=== PATIENT | male | born 1995 | race Caucasian/White ===

== ENCOUNTER 2018-03-11 20:04 | Emergency (ER) | payer OTHER ==
[2018-03-11 20:21] VITALS: RESP 16; TEMP 98.7
[2018-03-11] MEDS ORDERED: PROPARACAINE 0.5% OPHTH DROPS 15 ML BTL BOTH EYES STA (20:36)
--- NOTE | 2018-03-11 22:03 | ED ---
General Adult HPI - General Chief complaint: Eye Problems Stated complaint: Metal in eye Source: patient, RN notes reviewed, old records reviewed Mode of arrival: ambulatory Limitations: no limitations - History of Present Illness Initial comments: 22-year-old male patient with no pertinent past medical history for ED with pain right eye. Patient states that he was grinding metal approximately 3 days ago when he felt a piece. His right eye. Patient states he has had moderate right corneal irritation and sent incident. Patient states that the piece of metal is visible at approximately 9:00 adjacent to his iris. Patient denies any other complaints. Patient states that his vision is at baseline. Pt states he had tetanus update within last 18 months. Systemic: Pt denies fatigue, myalgia, fever/chills, rash. Pt denies weakness, night sweats, weight loss. Neuro: Pt denies headache, visual disturbances, syncope or pre-syncope. HEENT: Pt denies rhinorrhea, pharyngitis or notable lymphadenopathy. Cardiopulmonary: Pt denies chest pain, SOB, heart palpitations, dyspnea on exertion. Abdominal/GI: Pt denies abdominal pain, n/v/d. : Pt denies dysuria, burning w/ urination, frequency/urgency. Denies new onset urinary or bowel incontinence. MSK: Pt denies myalgia, loss of strength or function in extremities. - Related Data Previous Rx's Medication Instructions Recorded Ciprofloxacin Ophth Soln [Cipro 2 drops RIGHT EYE Q6HR 5 Days #1 03/11/18 0.3% Ophth Soln] bottle Allergies Allergy/AdvReac Type Severity Reaction Status Date / Time No Known Allergies Allergy Verified 03/11/18 20:21 Review of Systems ROS Statement: Those systems with pertinent positive or pertinent negative responses have been documented in the HPI. ROS Other: All systems not noted in ROS Statement are negative. Past Medical History Past Medical History: No Reported History Additional Past Medical History / Comment(s): Migraines History of Any Multi-Drug Resistant Organisms: None Reported Past Surgical History: No Surgical Hx Reported Past Psychological History: Depression Smoking Status: Current every day smoker Past Alcohol Use History: Rare Past Drug Use History: Marijuana General Exam - General Exam Comments Initial Comments: Constitutional: NAD, AOX3, Pt has pleasant affect. HEENT: NC/AT, trachea midline, neck supple, no lymphadenopathy. Posterior pharynx non erythematous, without exudates. External ears appear normal, without discharge. Mucous membranes moist. Eyes PERRLA, EOM intact. Mild injection noted right eye. Foreign body noted at 9:00 adjacent to iris. Flourescence stain did not reveal any other areas of uptake. Foreign body was removed with 18g needle. Minor rust ring noted, was removed with lady brush. There is no scleral icterus. No pallor noted. Cardiopulmonary: RRR, no murmurs, rubs or gallops, no JVD noted. Lungs CTAB in anterior and posterior m[place]ill[place]. No peripheral edema. Abdominal exam: Abdomen soft and non-distended. Abdomen non-tender to palpation in all 4 quadrants. Bowel sounds active in LLQ. No hepatosplenomegaly. Neuro: CN II-XII grossly intact. Limitations: no limitations Course Vital Signs 03/11/18 03/11/18 20:18 22:20 Temperature 98.7 F Pulse Rate 85 73 Respiratory 16 16 Rate Blood Pressure 167/74 144/81 O2 Sat by Pulse 100 99 Oximetry Medical Decision Making - Medical Decision Making 22-year-old male patient presents to ED after sustaining a foreign body in his right eye for approximately 2 days. Patient states that his present mental as he was using a metal hardener. Patient did not require tetanus update. Foreign bodies noted 18-gauge needle. Minor rust ring was noted, removed with lady brush. Patient prescribed ciprofloxacin eyedrops for 5 days. Patient to follow up with optho in 1-2 days. Patient to follow-up with PCP in 1-2 days. Patient to return to ED if any new signs or symptoms develop including loss of vision, increased irritation, discharge from eye, redness, or any other new symptoms. Case discussed with Dr. Osorio. Disposition Clinical Impression: Foreign body in eye Disposition: HOME SELF-CARE Condition: Good Instructions: Eye Foreign Body (ED) Additional Instructions: Patient to adhere to previously discussed treatment plan and will take medication(s) as directed. Patient to follow up with PCP in 1-2 days. Patient to return to ED if symptoms do not improve. Prescriptions: Ciprofloxacin Ophth Soln [Cipro 0.3% Ophth Soln] 2 drops RIGHT EYE Q6HR 5 Days # 1 bottle Is patient prescribed a controlled substance at d/c from ED?: No Referrals: Nazanin Villanueva III, MD [Primary Care Provider] - 1-2 days Sunday Walls MD [STAFF PHYSICIAN] - 1-2 days Time of Disposition: 22:03
[2018-03-11 22:27] VITALS: BP 144/81; PULSE 73
== END 2018-03-11 22:20 | disposition home or self-care (01) ==
LOC: EC 20:04
DX: T15.91XA Foreign body on external eye, part unspecified, right eye, initial encounter (principal); F17.200 Nicotine dependence, unspecified, uncomplicated
CPT/HCPCS: 99283

== ENCOUNTER 2019-01-03 08:52 | Emergency (ER) | payer OTHER ==
[2019-01-03 09:02] VITALS: BP 164/65; PULSE 69; RESP 18; TEMP 98.4
[2019-01-03] MEDS ORDERED: LIDOCAINE 1% INJ 10MG/ML (20 ML MDV) SQ ONE (09:22)
--- NOTE | 2019-01-03 09:40 | XR ---
EXAMINATION TYPE: XR hand complete LT DATE OF EXAM: 01/03/2019 COMPARISON: NONE HISTORY: 23-year-old male trauma and pain TECHNIQUE: 3 views FINDINGS: No acute fracture, subluxation, or dislocation. No retained radiopaque foreign body seen. IMPRESSION: No acute osseous abnormality seen.
[2019-01-03] MEDS ORDERED: CEPHALEXIN 500 MG CAP PO STA (10:40)
--- NOTE | 2019-01-03 10:42 | ED ---
Upper Extremity HPI - General Chief Complaint: Extremity Injury, Upper Stated Complaint: LEFT HAND INJURY/LACERATION Time Seen by Provider: 01/03/19 09:00 Source: patient Mode of arrival: ambulatory Limitations: no limitations - History of Present Illness Initial Comments: The patient is a 23-year-old male presents emergency room with complaint of laceration to his left thumb. The patient states that he sustained last night. He was using a hammer to cut tile. States that his hand slipped and brushed up against the edge of the tile. He did sustain a 1.5 cm laceration to the lateral aspect of his left thumb. The patient is right-hand dominant. He states that he attempted to glue the laceration with superglue. He then wrapped it up in a gauze. States that today it was still oozing and his laceration does not appear to be sticking together with the glue. Because of this he did come to the emergency room. States that his tetanus was updated within the past year. He denies any redness or pustular drainage from the site. Injury was sustained at 5 PM. He denies any numbness or tingling in his thumb. No loss of movement. Denies any additional injury sustained. There are no other alleviating, precipitating or modifying factors - Related Data Home Medications Medication Instructions Recorded Confirmed Acetaminophen/Diphenhydramine 1 tab PO HS PRN 01/03/19 01/03/19 [Tylenol PM 500-25mg] Previous Rx's Medication Instructions Recorded Cephalexin [Keflex] 500 mg PO Q6HR 3 Days #12 cap 01/03/19 Allergies Allergy/AdvReac Type Severity Reaction Status Date / Time No Known Allergies Allergy Verified 01/03/19 09:10 Review of Systems ROS Statement: Those systems with pertinent positive or pertinent negative responses have been documented in the HPI. ROS Other: All systems not noted in ROS Statement are negative. Past Medical History Past Medical History: No Reported History Additional Past Medical History / Comment(s): Migraines, stomach ulcer History of Any Multi-Drug Resistant Organisms: None Reported Past Surgical History: No Surgical Hx Reported Past Psychological History: Depression Smoking Status: Current every day smoker Past Alcohol Use History: Rare Past Drug Use History: Marijuana General Exam Limitations: no limitations General appearance: alert, in no apparent distress Extremities exam: Present: normal inspection, full ROM, normal capillary refill, other (laceration lateral aspect of left thumb - 1.5 x 0.5 cm. No deep structure involvement. No retained foreign bodies or underlying bony fracture. 5/5 muscle strength in b/l upper extremities. Intact movement in the median, radial, ulnar and AIN motor groups. Intact 2 point discrimination and soft touch. 2+ radial and ulnar pulses) Skin exam: Present: warm, dry Course Vital Signs 01/03/19 08:59 Temperature 98.4 F Pulse Rate 69 Respiratory 18 Rate Blood Pressure 164/65 O2 Sat by Pulse 98 Oximetry Procedures - Laceration Laceration #1 Consent Obtained: verbal consent Indication: laceration Site: hand Size (cm): 1 ((1.5 cm)) Description: linear Depth: simple, single layer Anesthetic Used: lidocaine 1% Anesthesia Technique: local infiltration Pre-repair: wound explored, irrigated extensively, deep structures intact Type of Sutures: nylon Size of Sutures: 5-0, 6-0 Number of Sutures: 3 Technique: simple, interrupted Patient Tolerated Procedure: well, no complications Medical Decision Making - Medical Decision Making Upon arrival the patient is placed in room 8. I did discuss diagnosis, differential and treatment options. I did discuss delayed closure with the increased risk of infection as the laceration happened last night. The patient understood this and was agreeable to laceration repair. The wound was copiously cleansed with 500 mL of room temperature normal saline high pressure. The lesion was explored in a bloodless field and revealed no deep structure involvement. No vascular, tendon or muscle involvement. No retained foreign body. I did reapproximate the wound using 3, 5-0 nylon suture the patient tolerated the procedure well. He is instructed to keep the area clean and dry a nd have the sutures removed in 10 days. He is placed in a baseball splint. He was given return parameters. The patient was discharged home in stable condition Disposition Clinical Impression: Finger laceration Disposition: HOME SELF-CARE Condition: Stable Instructions (If sedation given, give patient instructions): Care For Your Stitches (ED) Prescriptions: Cephalexin [Keflex] 500 mg PO Q6HR 3 Days #12 cap Is patient prescribed a controlled substance at d/c from ED?: No Referrals: None,Stated [Primary Care Provider] - 1-2 days Time of Disposition: 10:42
== END 2019-01-03 11:02 | disposition home or self-care (01) ==
LOC: EC 08:52
DX: S61.012A Laceration without foreign body of left thumb without damage to nail, initial encounter (principal); F17.200 Nicotine dependence, unspecified, uncomplicated; W22.8XXA Striking against or struck by other objects, initial encounter; Y93.89 Activity, other specified
CPT/HCPCS: 73130; 12001; 99283; J2001

== ENCOUNTER 2019-06-15 10:02 | Emergency (ER) | payer OTHER ==
[2019-06-15 10:15] VITALS: TEMP 98.5
--- NOTE | 2019-06-15 10:26 | ED ---
General Adult HPI - General Chief complaint: Upper Respiratory Infection Stated complaint: Cough,Fever, body aches, SOB Time Seen by Provider: 06/15/19 10:14 Source: patient Mode of arrival: ambulatory Limitations: no limitations - History of Present Illness Initial comments: Patient is 24-year-old male presenting to emergency Department with a chief co mplaint of cough congestion and fever. States the symptoms began about one day ago that initially started with a productive cough with clear sputum production. Does report some wheezing particularly in night whenever he lays down. Also reports some shortness of breath whenever he is wheezing. Denies any wheezing or shortness of breath at this time. Denies any chest pain and back pain. Does report clear bilateral rhinorrhea but denies any sore throat or otalgia. Does report a fever at home. This reports taking ibuprofen with some improvement in symptoms. Does report sick patient contact. Denies flu vaccination. Patient is a daily smoker. - Related Data Home Medications Medication Instructions Recorded Confirmed Acetaminophen/Diphenhydramine 1 tab PO HS PRN 01/03/19 01/03/19 [Tylenol PM 500-25mg] Previous Rx's Medication Instructions Recorded Cephalexin [Keflex] 500 mg PO Q6HR 3 Days #12 cap 01/03/19 Albuterol Inhaler [Ventolin Hfa 1 - 2 puff INHALATION RT-Q6H PRN 06/15/19 Inhaler] #1 inhaler Oseltamivir [Tamiflu] 75 mg PO Q12HR #10 cap 06/15/19 methylPREDNISolone [Medrol Dose 4 mg PO DIRECTED #1 pack 06/15/19 Pack] Allergies Allergy/AdvReac Type Severity Reaction Status Date / Time No Known Allergies Allergy Verified 06/15/19 10:15 Review of Systems ROS Statement: Those systems with pertinent positive or pertinent negative responses have been documented in the HPI. ROS Other: All systems not noted in ROS Statement are negative. Past Medical History Past Medical History: No Reported History Additional Past Medical History / Comment(s): Migraines, stomach ulcer History of Any Multi-Drug Resistant Organisms: None Reported Past Surgical History: No Surgical Hx Reported Past Psychological History: Depression Smoking Status: Current every day smoker Past Alcohol Use History: Rare Past Drug Use History: Marijuana General Exam Limitations: no limitations General appearance: alert, in no apparent distress Head exam: Present: atraumatic, normocephalic, normal inspection Eye exam: Present: normal appearance Pupils: Present: normal accommodation ENT exam: Present: normal exam, normal oropharynx (Uvula midline. No tonsillar erythema, exudates or enlargement.), mucous membranes moist, TM's normal bilaterally, normal external ear exam Neck exam: Present: normal inspection, full ROM. Absent: lymphadenopathy Respiratory exam: Present: normal lung sounds bilaterally. Absent: wheezes, rhonchi, stridor, chest wall tenderness, accessory muscle use, decreased breath sounds Cardiovascular Exam: Present: regular rate, normal rhythm, normal heart sounds GI/Abdominal exam: Present: soft. Absent: distended, tenderness Extremities exam: Present: normal inspection, full ROM Back exam: Present: normal inspection, full ROM Neurological exam: Present: alert, oriented X3 Psychiatric exam: Present: normal affect, normal mood Skin exam: Present: warm, dry, intact, normal color Course Vital Signs 06/15/19 10:13 Temperature 98.5 F Pulse Rate 102 H Respiratory 18 Rate Blood Pressure 176/81 O2 Sat by Pulse 100 Oximetry Medical Decision Making - Medical Decision Making Patient is 24-year-old male presenting to emergency Department with chief complaint cough congestion and fever. Symptoms not going for about one day. Physical examination is unremarkable. Chest x-ray shows mild perirectal cuffing suggesting possible bronchiolitis, this does not clinically correlate considered patient is 24 years old. Patient is positive for influenza a. Patient will be started on Tamiflu. Patient also prescribed a Medrol Dosepak and an albuterol inhaler. I counseled the patient for smoking cessation for greater than 3 minutes Return parameters were thoroughly discussed with patient is an ascending agreeable. He was advised to follow with primary care. Case discussed physician. - Lab Data Lab Results 06/15/19 Range/Units 10:25 Influenza Type A RNA Detected H (Not Detectd) Influenza Type B (PCR) Not Detected (Not Detectd) Disposition Clinical Impression: Cough, Influenza Disposition: HOME SELF-CARE Condition: Stable Instructions (If sedation given, give patient instructions): Influenza (DC) Additional Instructions: Follow-up with primary care. Take prescribed medication as directed. Return to emergency department if symptoms worsen. Prescriptions: methylPREDNISolone [Medrol Dose Pack] 4 mg PO DIRECTED #1 pack Oseltamivir [Tamiflu] 75 mg PO Q12HR #10 cap Albuterol Inhaler [Ventolin Hfa Inhaler] 1 - 2 puff INHALATION RT-Q6H PRN #1 inhaler PRN Reason: Wheezing Is patient prescribed a controlled substance at d/c from ED?: No Referrals: None,Stated [Primary Care Provider] - 1-2 days Time of Disposition: 11:02
--- NOTE | 2019-06-15 10:32 | XR ---
EXAMINATION TYPE: XR chest 2V DATE OF EXAM: 06/15/2019 COMPARISON: Chest x-ray July 11, 2013 HISTORY: Fever. TECHNIQUE: Frontal and lateral views of the chest are obtained. FINDINGS: There is no focal air space opacity, pleural effusion, or pneumothorax seen. Central maxim hilar peribronchial cuffing is present seen best lateral view The cardiac silhouette size is within n ormal limits. The osseous structures are intact. IMPRESSION: No suspicious peripheral acute infiltrate. Central perihilar peribronchial cuffing consi stent with reactive airway disease possibly from a viral bronchiolitis, correlate clinically.
[2019-06-15 11:07] VITALS: BP 135/71; PULSE 98; RESP 16
== END 2019-06-15 11:05 | disposition home or self-care (01) ==
LOC: EC 10:02
DX: J11.1 Influenza due to unidentified influenza virus with other respiratory manifestations (principal); F17.200 Nicotine dependence, unspecified, uncomplicated; Z71.6 Tobacco abuse counseling
CPT/HCPCS: 71046; 87502; 99283; 99406

== ENCOUNTER 2020-09-26 13:59 | Emergency (ER) | payer OTHER ==
[2020-09-26 14:15] VITALS: RESP 20; TEMP 98
[2020-09-26] MEDS ORDERED: SODIUM CHLORIDE 0.9% 1,000 ML IV STA (14:57)
[2020-09-26] MEDS ORDERED: KETOROLAC 15 MG/ML 1 ML VIAL IVP STA (14:57)
--- NOTE | 2020-09-26 14:59 | ED ---
General Adult HPI - General Chief complaint: Abdominal Pain Stated complaint: Kidney stone Time Seen by Provider: 09/26/20 14:10 Source: patient, RN notes reviewed, old records reviewed Mode of arrival: ambulatory Limitations: no limitations - History of Present Illness Initial comments: This is a 25-year-old male who presents emergency department stating that on Wednesday started having right-sided flank pain and yesterday got so bad it doubled him over at work per patient states it was sudden onset when it started and has had times where his been very severe. Patient denies any nausea. Patient states some of the pain does radiate down towards his groin. Patient denies any back pain. Patient denies any fever chills or cough per patient denies any nausea vomiting or diarrhea. Patient states he has not noticed driving on the car that the bumps make it any worse. States he has had no history of abdominal problems or kidney stones in the past. Patient denies any dysuria hematuria urinary frequency. - Related Data Home Medications Medication Instructions Recorded Confirmed Omeprazole Magnesium [PriLOSEC OTC] 20 mg PO DAILY 09/26/20 09/26/20 Allergies Allergy/AdvReac Type Severity Reaction Status Date / Time No Known Allergies Allergy Verified 09/26/20 16:50 Review of Systems ROS Statement: Those systems with pertinent positive or pertinent negative responses have been documented in the HPI. ROS Other: All systems not noted in ROS Statement are negative. Past Medical History Past Medical History: No Reported History Additional Past Medical History / Comment(s): Migraines, stomach ulcer History of Any Multi-Drug Resistant Organisms: None Reported Past Surgical History: No Surgical Hx Reported Past Psychological History: Depression Smoking Status: Current every day smoker Past Alcohol Use History: Rare Past Drug Use History: Marijuana General Exam - General Exam Comments Initial Comments: GENERAL: Patient is well-developed and well-nourished. Patient is nontoxic and well- hydrated and is in mild distress. ENT: Neck is soft and supple. No significant lymphadenopathy is noted. Oropharynx is clear. Moist mucous membranes. Neck has full range of motion without eliciting any pain. EYES: The sclera were anicteric and conjunctiva were pink and moist. Extraocular movements were intact and pupils were equal round and reactive to light. Eyelids were unremarkable. PULMONARY: Unlabored respirations. Good breath sounds bilaterally. No audible rales rhonchi or wheezing was noted. CARDIOVASCULAR: There is a regular rate and rhythm without any murmurs gallops or rubs. ABDOMEN: Soft and nontender with normal bowel sounds. SKIN: Skin is clear with no lesions or rashes and otherwise unremarkable. NEUROLOGIC: Patient is alert and oriented x3. Cranial nerves II through XII are grossly intact. Motor and sensory are also intact. Normal speech, volume and content. Symmetrical smile. MUSCULOSKELETAL: Normal extremities with adequate strength and full range of motion. No lower extremity swelling or edema. No calf tenderness. LYMPHATICS: No significant lymphadenopathy is noted PSYCHIATRIC: Normal psychiatric evaluation. Limitations: no limitations Course Vital Signs 09/26/20 14:12 Temperature 98 F Pulse Rate 70 Respiratory 20 Rate Blood Pressure 167/66 O2 Sat by Pulse 99 Oximetry Medical Decision Making - Medical Decision Making CT of the abdomen pelvis show no acute normalities. I went back in the room and the patient was resting comfortably at this time. Patient was in agreement to be discharged home and follow-up as needed. - Lab Data Result diagrams: 09/26/20 15:00 09/26/20 02:55 Lab Results 09/26/20 09/26/20 09/26/20 Range/Units 02:55 15:00 15:00 WBC 9.8 (3.8-10.6) k/uL RBC 4.76 (4.30-5.90) m/uL Hgb 15.4 (13.0-17.5) gm/dL Hct 44.3 (39.0-53.0) % MCV 93.2 (80.0-100.0) fL MCH 32.3 (25.0-35.0) pg MCHC 34.7 (31.0-37.0) g/dL RDW 12.6 (11.5-15.5) % Plt Count 296 (150-450) k/uL MPV 6.6 Neutrophils % 72 % Lymphocytes % 18 % Monocytes % 5 % Eosinophils % 4 % Basophils % 0 % Neutrophils # 7.0 (1.3-7.7) k/uL Lymphocytes # 1.7 (1.0-4.8) k/uL Monocytes # 0.5 (0-1.0) k/uL Eosinophils # 0.4 (0-0.7) k/uL Basophils # 0.0 (0-0.2) k/uL Sodium 137 (137-145) mmol/L Potassium 3.8 (3.5-5.1) mmol/L Chloride 104 (98-107) mmol/L Carbon Dioxide 23 (22-30) mmol/L Anion Gap 10 mmol/L BUN 19 (9-20) mg/dL Creatinine 0.89 (0.66-1.25) mg/dL Est GFR (CKD-EPI)AfAm >90 (>60 ml/min/1.73 sqM) Est GFR (CKD-EPI)NonAf >90 (>60 ml/min/1.73 sqM) Glucose 90 (74-99) mg/dL Calcium 10.0 (8.4-10.2) mg/dL Total Bilirubin 1.0 (0.2-1.3) mg/dL AST 31 (17-59) U/L ALT 18 (4-49) U/L Alkaline Phosphatase 62 (38-126) U/L Total Protein 7.3 (6.3-8.2) g/dL Albumin 4.7 (3.5-5.0) g/dL Amylase 63 (30-110) U/L Lipase 83 (23-300) U/L Urine Color Yellow Urine Appearance Cloudy (Clear) Urine pH 7.0 (5.0-8.0) Ur Specific [place] 1.049 H (1.001-1.035) Urine Protein 3+ H (Negative) Urine Glucose (UA) Negative (Negative) Urine Ketones Trace H (Negative) Urine Blood Negative (Negative) Urine Nitrite Negative (Negative) Urine Bilirubin 1+ H (Negative) Urine Urobilinogen 3.0 (<2.0) mg/dL Ur Leukocyte Esterase Negative (Negative) Urine RBC 4 (0-5) /hpf Urine WBC 3 (0-5) /hpf Urine Bacteria Few H (None) /hpf Urine Mucus Many H (None) /hpf Disposition Clinical Impression: Flank pain Disposition: HOME SELF-CARE Instructions (If sedation given, give patient instructions): Flank Pain (ED) Is patient prescribed a controlled substance at d/c from ED?: No Referrals: Ross Zimmer MD [Primary Care Provider] - 1-2 days Time of Disposition: 17:34
[2020-09-26 15:14] LABS: Basophils % (A) 0 %; Eosinophils # (A) 0.4 k/uL (0-0.7); Eosinophils % (A) 4 %; HCT 44.3 % (39.0-53.0); HGB 15.4 gm/dL (13.0-17.5); Lymphocytes # (A) 1.7 k/uL (1.0-4.8); Lymphocytes % (A) 18 %; MCH 32.3 pg (25.0-35.0); MCHC 34.7 g/dL (31.0-37.0); MCV 93.2 fL (80.0-100.0); Mean Platelet Volume 6.6; Monocytes # (A) 0.5 k/uL (0-1.0); Monocytes % (A) 5 %; Neutrophils % (A) 72 %; Platelet Count 296 k/uL (150-450); RBC 4.76 m/uL (4.30-5.90); RDW 12.6 % (11.5-15.5); WBC 9.8 k/uL (3.8-10.6)
[2020-09-26 15:18] LABS: Appearance,Urine Cloudy (Clear); Bacteria,Urine Few /hpf; Bilirubin,Urine 1+ (Negative); Blood,Urine Negative (Negative); Color,Urine Yellow; Glucose,Urine (UA) Negative (Negative); Ketones,Urine Trace (Negative); Leukocyte Esterase,Urine Negative (Negative); Mucus,Urine Many /hpf; Nitrite,Urine Negative (Negative); Protein,Urine 3+ (Negative); RBC,Urine 4 /hpf (0-5); WBC,Urine 3 /hpf (0-5)
[2020-09-26 15:25] LABS: Specific Gravity,Urine 1.049 (1.001-1.035)
[2020-09-26 15:37] LABS: ALT 18 U/L (4-49); AST 31 U/L (17-59); African American GFR (CKD) >90 (>60 ml/min/1.73 sqM); Albumin 4.7 g/dL (3.5-5.0); Alkaline Phosphatase 62 U/L (38-126); Amylase 63 U/L (30-110); Anion Gap 10 mmol/L; Blood Urea Nitrogen 19 mg/dL (9-20); Carbon Dioxide 23 mmol/L (22-30); Chloride 104 mmol/L (98-107); Glucose 90 mg/dL (74-99); Lipase 83 U/L (23-300); Non-African American GFR(CKD) >90 (>60 ml/min/1.73 sqM); Potassium 3.8 mmol/L (3.5-5.1); Sodium 137 mmol/L (137-145); Total Protein 7.3 g/dL (6.3-8.2)
--- NOTE | 2020-09-26 15:37 | XR ---
EXAMINATION TYPE: XR KUB DATE OF EXAM: 09/26/2020 3:32 PM CLINICAL HISTORY: Right flank pain since yesterday. TECHNIQUE: Two Upright KUB images of the abdomen are obtained. COMPARISON: Abdominal x-ray July 11, 2013 FINDINGS: Gas seen in nondistended stomach. Scattered gas is seen in non-distended small bowel loops. Gas and fecal material is seen in non-distended colon and rectum. There is no visceromegaly, pneumop eritoneum, or abnormal calcification appreciated. The lung bases are clear and the osseous structures are intact. IMPRESSION: Overall nonobstructive bowel gas pattern remains present. No definitive nephrolithiasis.
--- NOTE | 2020-09-26 16:41 | CT ---
EXAMINATION TYPE: CT abdomen pelvis wo con DATE OF EXAM: 09/26/2020 HISTORY: Right flank pain. CT DLP: 469.1 mGycm. Automated Exposure Control for Dose Reduction was Utilized. TECHNIQUE: CT scan of the abdomen and pelvis is performed without oral or IV contrast. COMPARISON: Abdominal x-ray earlier today FINDINGS: Within the limitations of a non-contrast study, the following observations are made. LUNG BASES: No significant abnormality is appreciated. LIVER/GB: No significant abnormality is appreciated. PANCREAS: No significant abnormality is seen. SPLEEN: No significant abnormality is seen. ADRENALS: No significant abnormality is seen. KIDNEYS: No renal stones or hydronephrosis is seen bilaterally. No intraluminal calculus in bladder. BOWEL: Appendix measures upper limits of normal from base of cecum. No surrounding inflammatory gentile e. No suspicious small or large bowel dilatation. Suboptimal evaluation of bowel without enteric con trast and patient having little intra-abdominal fat. GENITAL ORGANS: No gross abnormality seen. LYMPH NODES: No greater than 1cm abdominal or pelvic lymph nodes are appreciated. OSSEOUS STRUCTURES: Left-sided pars defect L5 level. No right-sided pars defect or spondylolisthesis OTHER: No significant additional abnormality is seen. IMPRESSION: No renal stones or hydronephrosis is seen bilaterally. No acute findings evident on nonco ntrast CT.
[2020-09-26 17:48] VITALS: BP 145/74; PULSE 72
== END 2020-09-26 17:53 | disposition home or self-care (01) ==
LOC: EC 13:59
DX: R10.9 Unspecified abdominal pain (principal); F32.9 Major depressive disorder, single episode, unspecified; F12.90 Cannabis use, unspecified, uncomplicated; F17.200 Nicotine dependence, unspecified, uncomplicated; Z79.899 Other long term (current) drug therapy
CPT/HCPCS: 36415; 80053; 82150; 83690; 85025; 81001; 74018; 74176; 99284; 96374; J1885

== ENCOUNTER 2023-01-02 05:01 | Observation (INO) | payer OTHER ==
[2023-01-02 06:19] LABS: Basophils % (A) 0 %; Eosinophils # (A) 0.2 k/uL (0-0.7); Eosinophils % (A) 1 %; HCT 43.6 % (39.0-53.0); HGB 15.5 gm/dL (13.0-17.5); Lymphocytes # (A) 0.8 k/uL (1.0-4.8); Lymphocytes % (A) 6 %; MCH 33.4 pg (25.0-35.0); MCHC 35.6 g/dL (31.0-37.0); MCV 93.9 fL (80.0-100.0); Mean Platelet Volume 7.3; Monocytes # (A) 0.6 k/uL (0-1.0); Monocytes % (A) 4 %; Neutrophils # (A) 12.8 k/uL (1.3-7.7); Neutrophils % (A) 88 %; Platelet Count 249 k/uL (150-450); RBC 4.64 m/uL (4.30-5.90); RDW 11.7 % (11.5-15.5); WBC 14.5 k/uL (3.8-10.6)
[2023-01-02] MEDS ORDERED: SODIUM CHLORIDE 0.9% 1,000 ML IV ONE (06:28)
[2023-01-02] MEDS ORDERED: FAMOTIDINE 20 MG/2 ML VIAL IV STA (06:28)
[2023-01-02 06:29] LABS: ALT 92 U/L (4-49); AST 316 U/L (17-59); African American GFR (CKD) >90 (>60 ml/min/1.73 sqM); Albumin 4.6 g/dL (3.5-5.0); Alkaline Phosphatase 65 U/L (38-126); Amylase 46 U/L (30-110); Anion Gap 11 mmol/L; Blood Urea Nitrogen 10 mg/dL (9-20); Calcium 9.6 mg/dL (8.4-10.2); Carbon Dioxide 20 mmol/L (22-30); Chloride 102 mmol/L (98-107); Glucose 97 mg/dL (74-99); Lipase 85 U/L (23-300); Non-African American GFR(CKD) >90 (>60 ml/min/1.73 sqM); Potassium 4.1 mmol/L (3.5-5.1); Sodium 133 mmol/L (137-145); Total Bilirubin 1.7 mg/dL (0.2-1.3); Total Protein 7.3 g/dL (6.3-8.2)
--- NOTE | 2023-01-02 06:32 | ED ---
Abdominal Pain HPI - General Source: patient, RN notes reviewed, old records reviewed Mode of arrival: ambulatory Limitations: no limitations - History of Present Illness MD Complaint: abdominal pain -: hour(s) (9) Location: RLQ Severity scale (1-10): 9 Quality: sharp Consistency: constant Associated Symptoms: nausea, vomiting <Constantin Garcia - Last Filed: 01/02/23 08:02> <Marcelle Johnson - Last Filed: 01/03/23 23:16> - General Chief Complaint: Abdominal Pain Stated Complaint: Abdominal pain, vomitting Time Seen by Provider: 01/02/23 06:20 - History of Present Illness Initial Comments: 27-year-old male presents to the emergency room with complaints of right lower quadrant pain started at 9 PM last night has had 3 episodes of vomiting yellow in color. No fevers. No diarrhea. Denies any other medical history. States danisha chaudhry has had similar symptoms in the past and was diagnosed with dehydration. States used to smoke marijuana stopped 3 months ago. (Constantin Garcia) - Related Data Home Medications Medication Instructions Recorded Confirmed Omeprazole Magnesium [PriLOSEC OTC] 20 mg PO BID PRN 09/26/20 01/02/23 Allergies Allergy/AdvReac Type Severity Reaction Status Date / Time No Known Allergies Allergy Verified 01/02/23 05:10 Review of Systems ROS Other: All systems not noted in ROS Statement are negative. <Constantin Garcia - Last Filed: 01/02/23 08:02> ROS Other: All systems not noted in ROS Statement are negative. <Marcelle Johnson - Last Filed: 01/03/23 23:16> ROS Statement: Those systems with pertinent positive or pertinent negative responses have been documented in the HPI. Past Medical History Past Medical History: No Reported History Additional Past Medical History / Comment(s): Migraines, stomach ulcer History of Any Multi-Drug Resistant Organisms: None Reported Past Surgical History: No Surgical Hx Reported Past Psychological History: Depression Smoking Status: Former smoker, Vaper Past Alcohol Use History: Rare Past Drug Use History: Marijuana <Constantin Garcia - Last Filed: 01/02/23 08:02> General Exam Limitations: no limitations General appearance: alert, in no apparent distress Head exam: Present: atraumatic Eye exam: Present: normal appearance. Absent: scleral icterus, conjunctival injection, periorbital swelling Neck exam: Present: full ROM. Absent: meningismus Respiratory exam: Absent: respiratory distress, accessory muscle use Cardiovascular Exam: Present: regular rate GI/Abdominal exam: Present: soft, tenderness (rlq, periumbilical). Absent: distended, guarding, rigid Extremities exam: Present: full ROM, normal capillary refill. Absent: tenderness, pedal edema Neurological exam: Present: alert, oriented X3 Psychiatric exam: Present: normal affect, normal mood Skin exam: Present: warm, dry, normal color. Absent: cyanosis, diaphoretic, petechiae, pallor <Constantin Garcia - Last Filed: 01/02/23 08:02> Course - Reevaluation(s) Time: 08:02 <Constantin Garcia - Last Filed: 01/02/23 08:02> Vital Signs 01/02/23 01/02/23 01/02/23 05:08 07:48 09:03 Temperature 97.9 F 98.7 F Pulse Rate 95 92 88 Respiratory 18 20 18 Rate Blood Pressure 154/78 136/88 129/72 O2 Sat by Pulse 100 99 100 Oximetry - Reevaluation(s) Reevaluation #1: 01/02/23 08:02 On reexam patient continues to have right lower quadrant pain 4 out of 10. Worse with movement up to [address] positive for appendicitis. Antibiotics were started. He'll be admitted to Dr. Harding for a lap appendectomy. (Constantin Garcia) Medical Decision Making - Lab Data Result diagrams: 01/02/23 05:28 01/02/23 05:28 <Constantin Garcia - Last Filed: 01/02/23 08:02> - Lab Data Result diagrams: 01/02/23 05:28 01/02/23 05:28 <Marcelle Johnson - Last Filed: 01/03/23 23:16> - Medical Decision Making Was pt. sent in by a medical professional or institution (, PA, MINE DEPUTY, urgent care, hospital, or alf...) When possible be specific @ -No Did you speak to anyone other than the patient for history (EMS, parent, family, police, friend...)? What history was obtained from this source @ -No Did you review nursing and triage notes (agree or disagree)? Why? @ -I reviewed and agree with nursing and triage notes Were old charts reviewed (outside hosp., previous admission, EMS record, old EKG, old radiological studies, urgent care reports/EKG's, alf records)? Report findings @ -No old charts were reviewed Differential Diagnosis (chest pain, altered mental status, abdominal pain women, abdominal pain men, vaginal bleeding, weakness, fever, dyspnea, syncope, he adache, dizziness, GI bleed, back pain, seizure, CVA, palpatations, mental health, musculoskeletal)? @ Differential Abdominal Pain Men: Appendicitis, cholecystitis, diverticulosis, ischemic bowel, pancreatitis, hepatitis, UTI, gastroenteritis, AAA, incarcerated hernia, bowel obstruction, constipation, inflammatory bowel, hepatitis, peptic ulcer disease, splenic infarction, perforated viscus, testicular torsion, this is not meant to be an all-inclusive list EKG interpreted by me (3pts min.). @ -n/a X-rays interpreted by me (1pt min.). @ -yes KUB X-ray ordered by nursing staff and interpreted by me shows stool within a nondistended colon. No evidence of obstruction. CT interpreted by me (1pt min.). @ -yes CT the abdomen and pelvis interpreted by me shows no evidence of inflamed appendix. U/S interpreted by me (1pt. min.). @ -None done What testing was considered but not performed or refused? (CT, X-rays, U/S, labs)? Why? @ -None What meds were considered but not given or refused? Why? @ -None Did you discuss the management of the patient with other professionals (professionals i.e. , PA, MINE DEPUTY, lab, RT, psych nurse, school social worker, multimedia manager, teacher, revenue officer, case checker)? Give summary @ -Case discussed with surgery Dr. Paul agreeable to admission and surgery Was smoking cessation discussed for >3mins.? @ -No Was critical care preformed (if so, how long)? @ -No Were there social determinants of health that impacted care today? How? (Homelessness, low income, unemployed, alcoholism, drug addiction, transportation, low edu. Level, literacy, decrease access to med. care, long-term, rehab)? @ -No Was there de-escalation of care discussed even if they declined (Discuss DNR or withdrawal of care, Hospice)? DNR status @ -No What co-morbidities impacted this encounter? (DM, HTN, Smoking, COPD, CAD, Cancer, CVA, ARF, Chemo, Hep., AIDS, mental health diagnosis, sleep apnea, morbid obesity)? @ -None Was patient admitted / discharged? Hospital course, mention meds given and route, prescriptions, significant lab abnormalities, going to OR and other pert inent info. @ -Admitted 27-year-old male presents to the emergency room with complaints of right lower quadrant pain started at 9 PM last night has had 3 episodes of vomiting yellow in color. No fevers. No diarrhea. Denies any other medical history. States he has had similar symptoms in the past and was diagnosed with dehydration. States used to smoke marijuana stopped 3 months ago. KUB X-ray ordered by nursing staff and interpreted by me shows stool within a nondistended colon. No evidence of obstruction. Radiologist interpretation overall nonobstructive bowel gas pattern. Labs show leukocytosis of 14.5 with a left shift. CT the abdomen and pelvis interpreted by me shows no evidence of inflamed appendix. Radiologist interpretation findings compatible with acute appendicitis without perforation or abscess. Case discussed with Dr. Harding who accepted admission requesting antibiotics and will be scheduled for lap appendectomy. Patient agreeable to this plan of care. Case discussed with Dr. Johnson. Undiagnosed new problem with uncertain prognosis? @ -No Drug Therapy requiring intensive monitoring for toxicity (Heparin, Nitro, Insulin, Cardizem)? @ -No Were any procedures done? @ -No Diagnosis/symptom? @ -Acute appendicitis Acute, or Chronic, or Acute on Chronic? @ -Acute Uncomplicated (without systemic symptoms) or Complicated (systemic symptoms)? @ -Uncomplicated Side effects of treatment? @ -No Exacerbation, Progression, or Severe Exacerbation? @ -No Poses a threat to life or bodily function? How? (Chest pain, [place], [place], pneumonia, PE, COPD, DKA, ARF, appy, cholecystitis, CVA, Diverticulitis, Homicidal, Suicidal, threat to staff... and all critical care pts) @ -No (Constantin Garcia) - Lab Data Lab Results 01/02/23 01/02/23 01/02/23 Range/Units 05:28 05:28 07:55 WBC 14.5 H (3.8-10.6) k/uL RBC 4.64 (4.30-5.90) m/uL Hgb 15.5 (13.0-17.5) gm/dL Hct 43.6 (39.0-53.0) % MCV 93.9 (80.0-100.0) fL MCH 33.4 (25.0-35.0) pg MCHC 35.6 (31.0-37.0) g/dL RDW 11.7 (11.5-15.5) % Plt Count 249 (150-450) k/uL MPV 7.3 Neutrophils % 88 % Lymphocytes % 6 % Monocytes % 4 % Eosinophils % 1 % Basophils % 0 % Neutrophils # 12.8 H (1.3-7.7) k/uL Lymphocytes # 0.8 L (1.0-4.8) k/uL Monocytes # 0.6 (0-1.0) k/uL Eosinophils # 0.2 (0-0.7) k/uL Basophils # 0.0 (0-0.2) k/uL Sodium 133 L (137-145) mmol/L Potassium 4.1 (3.5-5.1) mmol/L Chloride 102 (98-107) mmol/L Carbon Dioxide 20 L (22-30) mmol/L Anion Gap 11 mmol/L BUN 10 (9-20) mg/dL Creatinine 0.80 (0.66-1.25) mg/dL Est GFR (CKD-EPI)AfAm >90 (>60 ml/min/1.73 sqM) Est GFR (CKD-EPI)NonAf >90 (>60 ml/min/1.73 sqM) Glucose 97 (74-99) mg/dL Calcium 9.6 (8.4-10.2) mg/dL Total Bilirubin 1.7 H (0.2-1.3) mg/dL AST 316 H (17-59) U/L ALT 92 H (4-49) U/L Alkaline Phosphatase 65 (38-126) U/L Total Protein 7.3 (6.3-8.2) g/dL Albumin 4.6 (3.5-5.0) g/dL Amylase 46 (30-110) U/L Lipase 85 (23-300) U/L Urine Color Light Yellow Urine Appearance Clear (Clear) Urine pH 6.5 (5.0-8.0) Ur Specific [place] 1.016 (1.001-1.035) Urine Protein Negative (Negative) Urine Glucose (UA) Negative (Negative) Urine Ketones 1+ H (Negative) Urine Blood Negative (Negative) Urine Nitrite Negative (Negative) Urine Bilirubin Negative (Negative) Urine Urobilinogen <2.0 (<2.0) mg/dL Ur Leukocyte Esterase Negative (Negative) Disposition Decision Date: 01/02/23 Decision Time: 07:55 <Constantin Garcia - Last Filed: 01/02/23 08:02> <Marcelle Johnson - Last Filed: 01/03/23 23:16> Clinical Impression: Acute appendicitis Disposition: ADMITTED IP TO THIS HOSP
--- NOTE | 2023-01-02 07:47 | XR ---
EXAMINATION TYPE: XR KUB DATE OF EXAM: 01/02/2023 COMPARISON: NONE HISTORY: Pain TECHNIQUE: Single supine KUB image of the abdomen is obtained FINDINGS: Small bowel demonstrates no evidence for dilatation or air fluid levels. Gas and fecal material is seen in non-distended colon. No convincing evidence for pneumoperitoneum. No unusual calcifications. The lung bases are clear. The osseous structures are intact. IMPRESSION: 1. Overall nonobstructive bowel gas pattern.
--- NOTE | 2023-01-02 07:49 | CT ---
EXAMINATION TYPE: CT abdomen pelvis w con DATE OF EXAM: 01/02/2023 COMPARISON: 09/26/2020 HISTORY: RLQ pain with vomiting CT DLP: 1150.2 mGycm CONTRAST: CT scan of the abdomen and pelvis is performed without Oral Contrast and with IV Contrast, patient in jected with 100 ml mL of Isovue 300. FINDINGS: LUNG BASES-: No visible nodule. No infiltrate. LIVER/GB: No calcified gallstones. No space occupying hepatic lesion. Biliary tree is of normal ca liber. PANCREAS: No inflammation. No distinct mass. SPLEEN: No splenic enlargement. No lesion seen. ADRENALS: No nodule. No thickening. KIDNEYS/BLADDER: No hydronephrosis. No nephrolithiasis. No distinct renal mass. Urinary bladder g rossly unremarkable. BOWEL: Thickened and inflamed appendix compatible with acute appendicitis. The appendix measures 1.3 cm with surrounding inflammatory change. No evidence of perforation or abscess this time. Trace free fluid within the pelvis. No free air identified. Normal bowel caliber. GENITAL ORGANS: No gross abnormality. LYMPH NODES: No greater than 1cm abdominal or pelvic lymph nodes are appreciated. AORTA: No significant abnormality. OSSEOUS STRUCTURES: No significant abnormality is seen. OTHER: No significant additional abnormality is seen. IMPRESSION: 1. Findings compatible with acute appendicitis without perforation or abscess.
[2023-01-02] MEDS ORDERED: metroNIDAZOLE-NS PMX 500 MG in SALINE 1 100ML.BAG IVPB STA (07:53)
[2023-01-02] MEDS ORDERED: cefTRIAXone IN SWFI 1,000 MG/10 ML SYRINGE IVP STA (07:53)
[2023-01-02] MEDS ORDERED: SODIUM CHLORIDE 0.9% 1,000 ML IV STA (07:54)
[2023-01-02] MEDS ORDERED: NALOXONE 0.4 MG/ML 1 ML VIAL IV PRN ×2 (08:00→10:32)
[2023-01-02 08:06] LABS: Appearance,Urine Clear (Clear); Bilirubin,Urine Negative (Negative); Blood,Urine Negative (Negative); Color,Urine Light Yellow; Glucose,Urine (UA) Negative (Negative); Ketones,Urine 1+ (Negative); Leukocyte Esterase,Urine Negative (Negative); Nitrite,Urine Negative (Negative); PH, Urine 6.5 (5.0-8.0); Protein,Urine Negative (Negative); Specific Gravity,Urine 1.016 (1.001-1.035); Urobilinogen,Urine <2.0 mg/dL (<2.0)
--- NOTE | 2023-01-02 09:00 | P.GSHP ---
History of Present Illness H&P Date: 01/02/23 Chief Complaint: Right lower quadrant pain This a 27-year-old male who. The emergency room with a 12 are history of right lower quadrant pain. Patient's workup found have evidence acute appendicitis. Past Medical History Past Medical History: No Reported History Additional Past Medical History / Comment(s): Migraines, stomach ulcer History of Any Multi-Drug Resistant Organisms: None Reported Past Surgical History: No Surgical Hx Reported Past Psychological History: Depression Smoking Status: Former smoker, Vaper Past Alcohol Use History: Rare Past Drug Use History: Marijuana Medications and Allergies Home Medications Medication Instructions Recorded Confirmed Type Omeprazole Magnesium [PriLOSEC OTC] 20 mg PO DAILY 09/26/20 09/26/20 History Allergies Allergy/AdvReac Type Severity Reaction Status Date / Time No Known Allergies Allergy Verified 01/02/23 05:10 Surgical - Exam Vital Signs Temp Pulse Resp BP Pulse Ox 97.9 F 95 18 154/78 100 01/02/23 05:08 01/02/23 05:08 01/02/23 05:08 01/02/23 05:08 01/02/23 05:08 - General well developed, well nourished, no distress - Eyes PERRL - ENT normal pinna - Neck no masses - Respiratory normal expansion - Cardiovascular Rhythm: regular - Abdomen Tender right lower quadrant Abdomen: soft Results - Labs 01/02/23 05:28 01/02/23 05:28 Abnormal Lab Results - Last 24 Hours (Table) 01/02/23 01/02/23 01/02/23 Range/Units 05:28 05:28 07:55 WBC 14.5 H (3.8-10.6) k/uL Neutrophils # 12.8 H (1.3-7.7) k/uL Lymphocytes # 0.8 L (1.0-4.8) k/uL Sodium 133 L (137-145) mmol/L Carbon Dioxide 20 L (22-30) mmol/L Total Bilirubin 1.7 H (0.2-1.3) mg/dL AST 316 H (17-59) U/L ALT 92 H (4-49) U/L Urine Ketones 1+ H (Negative) Diabetes panel 01/02/23 Range/Units 05:28 Sodium 133 L (137-145) mmol/L Potassium 4.1 (3.5-5.1) mmol/L Chloride 102 (98-107) mmol/L Carbon Dioxide 20 L (22-30) mmol/L BUN 10 (9-20) mg/dL Creatinine 0.80 (0.66-1.25) mg/dL Glucose 97 (74-99) mg/dL Calcium 9.6 (8.4-10.2) mg/dL AST 316 H (17-59) U/L ALT 92 H (4-49) U/L Alkaline Phosphatase 65 (38-126) U/L Total Protein 7.3 (6.3-8.2) g/dL Albumin 4.6 (3.5-5.0) g/dL Calcium panel 01/02/23 Range/Units 05:28 Calcium 9.6 (8.4-10.2) mg/dL Albumin 4.6 (3.5-5.0) g/dL Pituitary panel 01/02/23 Range/Units 05:28 Sodium 133 L (137-145) mmol/L Potassium 4.1 (3.5-5.1) mmol/L Chloride 102 (98-107) mmol/L Carbon Dioxide 20 L (22-30) mmol/L BUN 10 (9-20) mg/dL Creatinine 0.80 (0.66-1.25) mg/dL Glucose 97 (74-99) mg/dL Calcium 9.6 (8.4-10.2) mg/dL Adrenal panel 01/02/23 Range/Units 05:28 Sodium 133 L (137-145) mmol/L Potassium 4.1 (3.5-5.1) mmol/L Chloride 102 (98-107) mmol/L Carbon Dioxide 20 L (22-30) mmol/L BUN 10 (9-20) mg/dL Creatinine 0.80 (0.66-1.25) mg/dL Glucose 97 (74-99) mg/dL Calcium 9.6 (8.4-10.2) mg/dL Total Bilirubin 1.7 H (0.2-1.3) mg/dL AST 316 H (17-59) U/L ALT 92 H (4-49) U/L Alkaline Phosphatase 65 (38-126) U/L Total Protein 7.3 (6.3-8.2) g/dL Albumin 4.6 (3.5-5.0) g/dL - Imaging CT scan - abdomen: report reviewed Assessment and Plan Plan: Acute appendicitis patient will undergo laparoscopic appendectomy.
[2023-01-02] MEDS ORDERED: LIDOCAINE 2% INJ 20 MG/ML (2 ML VIAL) ONE (09:52)
[2023-01-02] MEDS ORDERED: PROPOFOL 10 MG/ML 20 ML VIAL IV ONE (09:52)
[2023-01-02] MEDS ORDERED: MIDAZOLAM 2 MG/2 ML VIAL ONE (09:52)
[2023-01-02] MEDS ORDERED: KETAMINE 10 MG/ML 20 ML VIAL ONE (09:52)
[2023-01-02] MEDS ORDERED: ONDANSETRON 4 MG/2 ML VIAL ONE (09:52)
[2023-01-02] MEDS ORDERED: HEPARIN SODIUM,PORCINE 5,000 UNIT/ML 1 ML VIAL ONE (09:52)
[2023-01-02] MEDS ORDERED: ROCURONIUM 10 MG/ML (5 ML VIAL) IV ONE (09:52)
[2023-01-02] MEDS ORDERED: NEOSTIGMINE 1 MG/ML 10 ML VIAL ONE (09:52)
[2023-01-02] MEDS ORDERED: GLYCOPYRROLATE 0.2 MG/ML 2 ML VIAL ONE (09:52)
[2023-01-02] MEDS ORDERED: fentaNYL (PF) 50 MCG/ML 2 ML AMP ONE (09:52)
[2023-01-02] MEDS ORDERED: KETOROLAC 15 MG/ML 1 ML VIAL ONE (09:52)
[2023-01-02] MEDS ORDERED: SUCCINYLCHOLINE CHLORIDE 200 MG/10 ML VIAL IV ONE (09:52)
[2023-01-02] MEDS ORDERED: DEXAMETHASONE SOD PHOSPHATE 4 MG/ML 1 ML VIAL ONE (09:52)
[2023-01-02] MEDS ORDERED: LACTATED RINGERS 1,000 ML IV ONE ×2 (09:57→10:32)
[2023-01-02] MEDS ORDERED: BUPIVACAINE (PF) 0.25% 30 ML VIAL SQ ONE (10:14)
--- NOTE | 2023-01-02 10:31 | P.OP ---
Date of Procedure: 01/02/23 Preoperative Diagnosis: Acute appendicitis Postoperative Diagnosis: Acute appendicitis Procedure(s) Performed: Laparoscopic appendectomy Anesthesia: KELLY Surgeon: Flavio Harding Estimated Blood Loss (ml): 5 Pathology: other (Appendix) Condition: stable Disposition: PACU Description of Procedure: The patient's placed on the operating table in the supine position. The patient received general anesthesia. The abdomen was prepped and draped in the usual sterile fashion. The skin was anesthetized 1% local Xylocaine at the trocar sites. Using an 11 blade the skin was incised at the umbilicus. The umbilicus was grasped with a Josephine clamp and then a Veress needle was placed into the peritoneal cavity. Position of the Veress needle was confirmed with positive drop test. After adequate insufflation a 5 mm trocar was placed into the peritoneal cavity. The abdomen was further insufflated. And then the laparoscope was placed in the peritoneal cavity. Next a 5 mm trocar was placed in the midline suprapubic position. And then a 10 mm trocar was placed in the midline epigastric position. The patient was rotated with the right side up and in Trendelenburg. The appendix was visualized. The appendix appeared to be inflamed. The appendix was grasped and then using the Harmonic scissors the mesoappendix was divided. A PDS Endoloop was then placed around the base of the appendix. And then the appendix was divided using Harmonic scissors. The appendix was placed into an Endo Catch and brought out through the 10 mm trocar site. The abdomen was irrigated. There is no bleeding seen. The trochars withdrawn. The skin was closed interrupted 3-0 Monocryl suture. Dermabond dressing was applied. Patient was sent to recovery room in stable condition.
[2023-01-02] MEDS ORDERED: HYDROmorphone 1 MG/ML 1 ML SYRINGE IVP PRN (10:32)
[2023-01-02] MEDS ORDERED: ONDANSETRON 4 MG/2 ML VIAL IVP PRN (10:32)
[2023-01-02] MEDS ORDERED: ACETAMINOPHEN TAB 325 MG TAB PO PRN (10:32)
[2023-01-02] MEDS ORDERED: HYDROcodone/APAP 5-325MG 1 EACH TAB PO PRN (10:32)
[2023-01-02] MEDS ORDERED: HYDROmorphone 0.5 MG/0.5 ML SYRINGE IVP PRN (10:32)
[2023-01-02] MEDS ORDERED: HYDROmorphone 0.5 MG/0.5 ML SYRINGE IVP ONE (10:59)
[2023-01-02] MEDS: KETOROLAC 15 MG/ML 1 ML VIAL IVP SCH ×3 (13:56→23:34)
[2023-01-02] MEDS: PIPERACILLIN-TAZOBACTAM 3.375 GM in SODIUM CHLORIDE 0.9% 100 ML IVPB SCH ×2 (15:36→21:42)
[2023-01-02] MEDS: HYDROcodone/APAP 5-325MG 1 EACH TAB PO PRN ×2 (15:39→21:48)
[2023-01-02] MEDS: HYDROmorphone 0.5 MG/0.5 ML SYRINGE IVP PRN (23:35)
[2023-01-03] MEDS: KETOROLAC 15 MG/ML 1 ML VIAL IVP SCH ×4 (06:03→23:09)
[2023-01-03] MEDS: PIPERACILLIN-TAZOBACTAM 3.375 GM in SODIUM CHLORIDE 0.9% 100 ML IVPB SCH ×3 (08:32→23:09)
[2023-01-03] MEDS: HYDROcodone/APAP 5-325MG 1 EACH TAB PO PRN ×2 (08:32→14:51)
[2023-01-03] MEDS: ENOXAPARIN 40 MG/0.4 ML SYRINGE SQ SCH (08:32)
--- NOTE | 2023-01-03 10:41 | P.PN ---
Progress Note - Text Progress Note Date: 01/03/23 Patient's postoperative day 1 from laparoscopic appendectomy acute appendicitis. Patient states he has some mild right lower quadrant pain. On exam vital signs are stable. Abdomen soft. Status post laparoscopic appendectomy. Patient will receive IV antibiotic. We'll plan to discharge him home tomorrow
[2023-01-03] MEDS: HYDROmorphone 0.5 MG/0.5 ML SYRINGE IVP PRN (23:10)
[2023-01-04] MEDS: KETOROLAC 15 MG/ML 1 ML VIAL IVP SCH (05:11)
[2023-01-04 08:15] VITALS: RESP 14
[2023-01-04] MEDS: PIPERACILLIN-TAZOBACTAM 3.375 GM in SODIUM CHLORIDE 0.9% 100 ML IVPB SCH (08:59)
[2023-01-04] MEDS: ENOXAPARIN 40 MG/0.4 ML SYRINGE SQ SCH (08:59)
[2023-01-04] MEDS: HYDROcodone/APAP 5-325MG 1 EACH TAB PO PRN (08:59)
[2023-01-04] MEDS: HYDROmorphone 0.5 MG/0.5 ML SYRINGE IVP PRN (11:44)
--- NOTE | 2023-01-04 13:16 | P.DS ---
Providers Date of admission: 01/02/23 08:18 Expected date of discharge: 01/04/23 Attending physician: Flavio Harding Primary care physician: Stated None Hospital Course: Discharge diagnosis 1. Acute appendicitis status post laparoscopic appendectomy Hospital course This is a 27-year-old male who presented with a right lower quadrant abdominal pain. He was found have evidence of acute appendicitis. He is status post laparoscopic appendectomy. Patient tolerated surgery well. He is tolerating diet. He is having bowel movements. Afebrile. He has been up and ambulating. He is stable for discharge. Please refer to chart for any further details. Physician Certified Ophthalmic Technician note has been reviewed by physician. Signing provider agrees with the documented findings, assessment, and plan of care. Patient Condition at Discharge: Stable Plan - Discharge Summary New Discharge Prescriptions: New Ibuprofen [Motrin] 600 mg PO Q8HR PRN #30 tab PRN Reason: Pain oxyCODONE HCL [OxyIR] 5 mg PO Q6H PRN 3 Days #12 tab PRN Reason: Pain Acetaminophen Tab [Tylenol] 1,000 mg PO Q6HR PRN #30 tablet PRN Reason: Pain Continue Omeprazole Magnesium [PriLOSEC OTC] 20 mg PO BID PRN PRN Reason: ACID REFLUX Discharge Medication List Omeprazole Magnesium [PriLOSEC OTC] 20 mg PO BID PRN 09/26/20 [History] Acetaminophen Tab [Tylenol] 1,000 mg PO Q6HR PRN #30 tablet 01/04/23 [Rx] Ibuprofen [Motrin] 600 mg PO Q8HR PRN #30 tab 01/04/23 [Rx] oxyCODONE HCL [OxyIR] 5 mg PO Q6H PRN 3 Days #12 tab 01/04/23 [Rx] Follow up Appointment(s)/Referral(s): Ross Zimmer MD [REFERRING] - 1-2 days Flavio Harding MD [STAFF PHYSICIAN] - 01/12/23 2:20 pm Patient Instructions/Handouts: Appendicitis (GEN) Activity/Diet/Wound Care/Special Instructions: No driving while taking OxyIR No lifting over 10 pounds Shower daily. No soaking or tub baths for 2 weeks Very light activity until you are reevaluated at your follow up appointment with your surgeon Discharge Disposition: HOME SELF-CARE
[2023-01-04 14:06] VITALS: BP 110/65; PULSE 79; TEMP 98.2
== END 2023-01-04 14:45 | disposition home or self-care (01) ==
LOC: EC 05:01 → 6NMEDSUR 08:18
PROVIDERS: ADMIT Surgery; ATTEND Surgery
DX: K35.80 Unspecified acute appendicitis (principal); G43.909 Migraine, unspecified, not intractable, without status migrainosus; F32.A Depression, unspecified; F17.290 Nicotine dependence, other tobacco product, uncomplicated; Z79.899 Other long term (current) drug therapy; Z87.11 Personal history of peptic ulcer disease
CPT/HCPCS: 96374; 99285; 36415; 88304; 80053; 82150; 83690; 85025; 81003; 87040; 74018; 74177; 44970; G0378 ×3; J2543 ×3; J2250; J0330; J1644; J1100; J2710; J2405; J1650 ×2; J0696; J3010; J3490; J1885 ×3; J2704; J1170 ×3; Q9967; J2001; J1836; J0665

== ENCOUNTER → 2023-08-18 | Outpatient (CLI) | payer OTHER ==
--- NOTE | 2023-08-18 16:51 | US ---
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 Pt states he noticed it a few weeks ago. Pt states he had a pimple there a while ago and popped it TECHNIQUE: Area of lump scanned on right upper thigh FINDINGS: Hypoechoic area with vascularity seen measuring 2.0 x 0.6 x 0.3cm in area of lump. Underly ing abscess could be considered. Hematoma would be within the differential. If there is concern for s olid area, MRI could further evaluate this area. IMPRESSION: 1. Hypoechoic collection which contains vascularity medial right thigh corresponding to palpable abno rmality.
--- NOTE | 2023-08-18 17:15 | US ---
EXAMINATION TYPE: US scrotum with doppler. Grayscale and color Doppler Duplex imaging performed of shayla knox scrotum. 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 Non painful. EXAM MEASUREMENTS: TESTICLES: Right Testicle: 4.7 x 3.5 x 2.5 cm Left Testicle: 4.9 x 3.6 x 2.4 cm EPIDIDYMIS HEAD: Right Epididymis: 0.6 cm, epi head cyst measuring 0.5 x 0.5 x 0.4cm Left Epididymis: 0.7 cm Doppler performed to assess for testicular vascularity; good bilateral color flow and waveforms are s een. There is no evidence of testicular torsion. Presence of hydroceles: Small on lt side Presence of varicoceles: No Echogenic area with posterior shadowing seen in area of lump measuring 0.5 x 0.4 x 0.2cm IMPRESSION: 1. There is an echogenic area at the level of the patient's lump. This may have some shadowing sugges ting calcification. Consider additional evaluation by urology.
== END | disposition home or self-care (01) ==
LOC: RADUSWWP 15:43
PROVIDERS: ATTEND Internal Medicine
DX: N50.9 Disorder of male genital organs, unspecified (principal); M79.89 Other specified soft tissue disorders; R22.41 Localized swelling, mass and lump, right lower limb
CPT/HCPCS: 76870; 93975